=== PATIENT | male | born 1965 | race Two or more races ===

== ENCOUNTER 2017-04-08 08:34 | Emergency (ER) | payer OTHER | END 2017-04-08 13:44 | disposition left against medical advice (07) | LOC: CED 08:34 | DX: Z53.21 Procedure and treatment not carried out due to patient leaving prior to being seen by health care provider (principal) ==

== ENCOUNTER → 2017-05-20 | Outpatient (CLI) | payer OTHER ==
--- NOTE | ~2017-05-20 | CR184 ---
[facility] A Service of [facility] & [facility] / [facility] RADIOLOGY TEXT RESULTS PATIENT: JOSH GUNN LOCATION: [facility] : 61 UNIT #: [id number] AGE: [address]: Linda Gant MD SEX: M ORDER DR: [id number] [facility] [address] [place], [place] [address] [id number] O MR#: [id number] Acc #: [id number] NAME: JOSH GUNN : 1965 SEX: M STUDY DATE/TIME: 05/20/2017 12:15 UNIT: [facility] ROOM: STUDY DESCRIPTION: CR Lumbar Spine Min 4 Views Attending Physician: Linda Gant M.D. Ordering Physician: Linda Gant M.D. Primary Care Physician: Primary Care Physician No MEDICAL IMAGING REPORT This report is preliminary unless electronic signature is present EXAM Lumbar spine 5 views HISTORY Low-back pain for 2 years. FINDINGS Five views of the lumbar spine demonstrate 3 mm retrolisthesis of L2 on L3 and L3 on L4. Minimal disc space narrowing at L2-3. No fracture. No spondylolysis. IMPRESSION 1. Mild hypertrophic changes upper and lower lumbar spine. 2. Minimal retrolisthesis of L2 on L3 and L3 on L4. Dictated by... Adilson Knight M.D. THIS IS AN ELECTRONICALLY VERIFIED REPORT Adilson Knight M.D. at 05/21/2017 11:17 PM DFL/miguel TD: 05/21/2017 09:13 JOB #: [id number] MEDICAL IMAGING REPORT Page 1 of 1 COPY
== END | disposition home or self-care (01) ==
LOC: CRAD 11:59
DX: M54.5 Low back pain (principal); E66.01 Morbid (severe) obesity due to excess calories; E11.9 Type 2 diabetes mellitus without complications; Z89.511 Acquired absence of right leg below knee; M43.16 Spondylolisthesis, lumbar region
CPT/HCPCS: 72110